=== PATIENT | male | born 1940 | race Caucasian/White ===

== ENCOUNTER 2018-02-15 08:09 | Day surgery (SDC) | payer OTHER ==
[2018-02-15] MEDS ORDERED: PROPOFOL 40 ML (09:24)
== END 2018-02-15 15:01 | disposition home or self-care (01) ==
LOC: GIL 08:09
DX: K92.1 Melena (principal); K44.9 Diaphragmatic hernia without obstruction or gangrene; K29.50 Unspecified chronic gastritis without bleeding; K62.1 Rectal polyp; K64.8 Other hemorrhoids
CPT/HCPCS: 43239; 88305; 88312